=== PATIENT | male | born 1975 ===

== ENCOUNTER 2018-10-01 19:56 | Emergency (ER) | payer OTHER ==
[2018-10-01 20:08] VITALS: RESP 20
--- NOTE | 2018-10-01 21:25 | C.PDOC ---
History Of Present Illness 42 year old male presents to the ED c/o arthritic pain to his sternum, back and hips. Patient has PMHx of psoriatic arthritis, reports he has been taking his meds today 3 times today with no improvement. Patient denies fever, chills, nausea, vomit, diarrhea, rash, SOB, palpitations, injury, fall, trauma. Time Seen by Provider: 10/01/18 20:14 Chief Complaint (Nursing): Chest Pain History Per: Patient History/Exam Limitations: no limitations Onset/Duration Of Symptoms: Days Current Symptoms Are (Timing): Still Present Quality: "Pain" Exacerbating Factors: Movement Recent travel outside of the [place]: No Additional History Per: Patient Past Medical History Reviewed: Historical Data, Nursing Documentation, Vital Signs Vital Signs: Last Vital Signs Temp 99 F 10/01/18 20:00 Pulse 88 10/01/18 20:00 Resp 20 10/01/18 20:00 BP 129/87 10/01/18 20:00 Pulse Ox 98 10/01/18 20:00 - Medical History PMH: Arthritis Surgical History: No Surg Hx Family History: States: Unknown Family Hx - Social History Hx Tobacco Use: No Hx Alcohol Use: No Hx Substance Use: No - Immunization History Hx Tetanus Toxoid Vaccination: No Hx Influenza Vaccination: No Hx Pneumococcal Vaccination: No Review Of Systems Constitutional: Negative for: Fever, Chills Eyes: Negative for: Vision Change Cardiovascular: Positive for: Chest Pain. Negative for: Palpitations Respiratory: Negative for: Cough, Shortness of Breath Gastrointestinal: Negative for: Nausea, Vomiting, Abdominal Pain Musculoskeletal: Positive for: Back Pain Skin: Negative for: Rash Neurological: Negative for: Weakness, Numbness Physical Exam - Physical Exam Appears: Non-toxic, No Acute Distress Skin: Normal Color, Warm, Dry Head: Atraumatic, Normacephalic Eye(s): bilateral: Normal Inspection Oral Mucosa: Moist Neck: Normal ROM, No Midline Cervical Tenderness, Supple Chest: Symmetrical, Tenderness (positionally but no digitally reproducible parasternal tenderness) Cardiovascular: Rhythm Regular Respiratory: Normal Breath Sounds, No Rales, No Rhonchi, No Wheezing Gastrointestinal/Abdominal: Soft, No Tenderness, No Guarding, No Rebound Back: Other (posterior rib cage tenderness and SI joint area) Extremity: Normal ROM, No Tenderness, No Swelling Neurological/Psych: Oriented x3, Normal Speech, Normal Cognition Gait: Steady ED Course And Treatment O2 Sat by Pulse Oximetry: 98 (ON RA) Pulse Ox Interpretation: Normal Medical Decision Making Medical Decision Making: arthritis related to psoriatic arthritis much improved with toradol- pt declined Tramadol Disposition Doctor Will See Patient In The: Office Counseled Patient/Family Regarding: Studies Performed, Diagnosis - Disposition Referrals: [facility] [Outside] [facility] [Outside] [facility] [Outside] [facility] [Outside] Disposition: HOME/ ROUTINE Disposition Time: 21:25 Condition: GOOD Additional Instructions: motrin/advil 400-600 mg every 6 hours as needed for arthritis pain pepcid 20 mg @ night to help prevent stomach irritation from the Motrin/Advil outpatient follow-up in the Clinic. Instructions: Psoriatic Arthritis Forms: [facility] ([place]ish) - Clinical Impression Clinical Impression: Chest wall discomfort, Arthritis pain - Scribe Statement The provider has reviewed the documentation as recorded by the Scribe Luke Witt All medical record entries made by the Scribe were at my direction and personally dictated by me. I have reviewed the chart and agree that the record accurately reflects my personal performance of the history, physical exam, medical decision making, and the department course for this patient. I have also personally directed, reviewed, and agree with the discharge instructions and disposition.
[2018-10-01 21:34] VITALS: BP 119/71; PULSE 75; TEMP 98.3
[2018-10-02 00:29] VITALS: O2SAT 98
--- NOTE | 2018-10-03 14:19 | CARD ---
APPROVED REPORT Date of service: 10/01/2018 EKG Measurement Heart [id number] <Conclusion> Normal sinus rhythm Possible Right ventricular hypertrophy Abnormal ECG
== END 2018-10-01 21:34 | disposition home or self-care (01) ==
LOC: C.ER 19:56
DX: L40.50 Arthropathic psoriasis, unspecified (principal); R07.89 Other chest pain
CPT/HCPCS: 93005; 96372; 99284; J1885

== ENCOUNTER 2018-10-05 12:27 | Outpatient (CLI) | payer OTHER | END 2018-10-05 12:28 | disposition home or self-care (01) | LOC: C.LAB 12:27 | DX: M06.09 Rheumatoid arthritis without rheumatoid factor, multiple sites (principal) ==